=== PATIENT | male | born 1960 | race African-American/Black ===

== ENCOUNTER 2018-09-23 01:49 | Emergency (ER) | payer MEDICAID ==
[~2018-09-23] VITALS: Ht 185.4 cm; Wt 84.0 kg
[2018-09-23] MEDS ORDERED: IBUPROFEN 600MG TABLET PO ONE (05:00)
[2018-09-23 06:54] VITALS: BP 113/71
== END 2018-09-23 06:56 | disposition home or self-care (01) ==
LOC: ER 01:49
DX: M79.642 Pain in left hand (principal); H54.61 Unqualified visual loss, right eye, normal vision left eye; Y04.0XXA Assault by unarmed brawl or fight, initial encounter
CPT/HCPCS: 73130; 99284

== ENCOUNTER 2021-08-10 01:03 | Emergency (ER) | payer MEDICAID ==
[~2021-08-10] VITALS: Ht 185.4 cm; Wt 82.0 kg
[~2021-08-10 01:03] MED LIST: CEPH500C2 MT; IBUP-2029 MT; SULF1TAB48 MT
[2021-08-10] MEDS ORDERED: LIDOCAINE HCL/EPINEPHRINE 1%-EPI 1:100,000 20 ML VIAL INFIL SCH (02:30)
[2021-08-10] MEDS ORDERED: BACITRACIN ZINC OINT UDPKT TOP SCH (02:30)
[2021-08-10] MEDS ORDERED: HYDROCODONE/ACETAMINOPHEN 5/325MG TABLET PO SCH (02:32)
[2021-08-10] MEDS ORDERED: KETOROLAC 60MG/2ML VIAL IM SCH (02:32)
[2021-08-10] MEDS ORDERED: LORAZEPAM 2MG/ML CPJ IM STA (03:11)
[2021-08-10] MEDS ORDERED: IBUP-2029 PO (04:20)
[2021-08-10] MEDS ORDERED: CEPH500C2 PO (04:20)
[2021-08-10] MEDS ORDERED: SULF1TAB48 PO (04:20)
[2021-08-10] MEDS ORDERED: HYDR-4001 PO (04:20)
[2021-08-10 04:30] VITALS: BP 140/68
== END 2021-08-10 04:37 | disposition home or self-care (01) ==
LOC: ER 01:03
DX: L02.214 Cutaneous abscess of groin (principal); R03.0 Elevated blood-pressure reading, without diagnosis of hypertension
CPT/HCPCS: 96372; 99284; J1885; J2060; J3490; Z7610